=== PATIENT | male | born 1975 | race Caucasian/White ===

== ENCOUNTER 2018-08-25 20:23 | Inpatient (IN) | payer OTHER, SELFPAY ==
[2018-08-25] MEDS ORDERED: Ondansetron HCl/PF 4 MG/2 ML Vial ONE (20:52)
[2018-08-25 21:03] LABS: #Lymphocytes 1.3 thou/uL (1.20-3.40); #Monocytes 0.7 thou/uL (0.11-0.59); #Neutrophils 13.3 thou/uL (1.40-6.50); %Basophils 0.2 % (0.0-1.0); %Eosinophils 0.2 % (0.0-10.0); %Lymphocytes 8.8 % (21.0-51.0); %Monocytes 4.3 % (0.0-10.0); %Neutrophils 86.6 % (42.0-75.0); Mean Corpuscular HGB CONC 33.7 g/dL (32.0-36.0); Mean Corpuscular Hemoglobin 30.6 pg (27.0-31.0); Mean Corpuscular Volume 90.6 fL (78.0-98.0); Mean Platelet Volume 8.2 fL (7.4-10.4); Platelet Count 274 thou/uL (130-400); RBC Distribution Width 11.5 % (11.5-14.5); Red Blood Cell (RBC) Count 5.55 mill/uL (4.70-6.10); White Blood Cell (WBC) Count 15.3 thou/uL (4.8-10.8)
[2018-08-25] MEDS ORDERED: Morphine 4 MG/ML VIAL ONE (21:21)
[2018-08-25 21:29] LABS: CKMB 0.8 ng/mL (0-6.6); Troponin I Less than 0.010 ng/mL (< 0.028)
[2018-08-25 21:34] LABS: ALT (SGPT) 9 U/L (8-55); AST (SGOT) 15 U/L (5-34); Albumin 4.5 g/dL (3.5-5.0); Alkaline Phosphatase 45 U/L (40-150); Anion Gap 17 mmol/L (10-20); BUN (Urea Nitrogen) 18 mg/dL (8.9-20.6); Bilirubin, Total 0.7 mg/dL (0.2-1.2); CK (CPK) 102 U/L (30-200); Calc. Creatinine Clearance 0 mL/min (70-130); Calcium 9.4 mg/dL (7.8-10.44); Carbon Dioxide 21 mmol/L (22-29); Chloride 105 mmol/L (98-107); Estimated GFR-MDRD 62; Globulin 2.7 g/dL (2.4-3.5); Glucose 142 mg/dL (70-105); Potassium 4.8 mmol/L (3.5-5.1); Protein, Total 7.2 g/dL (6.0-8.3); Sodium 138 mmol/L (136-145)
[2018-08-25 21:39] LABS: Lipase 5693 U/L (8-78)
--- NOTE | 2018-08-25 22:25 | ULT ---
RIGHT UPPER QUADRANT ULTRASOUND 08/25/18 COMPARISON: None. HISTORY: Pain. TECHNIQUE: Multiplanar arrieta scale sonographic imaging of the right upper quadrant provided. FINDINGS: imaged pancreas is unremarkable. Distal body and tail are obscured by bowel gas. No focal liver lesio n or intrahepatic biliary dilatation is noted. The gallbladder wall is normal in thickness. The common bile duct measures 5 mm, within normal limits . No gallstones are noted. There is small volume free fluid in the right upper quadrant adjacent to t he right kidney. Right kidney measures 10 cm in craniocaudal dimension and demonstrates no stone, hyd ronephrosis or mass. IMPRESSION: Small volume right upper quadrant free fluid. No cholelithiasis noted. POS: SHON
--- NOTE | 2018-08-25 23:00 | PDOC.FPRHP ---
- History of Present Illness Chief Complaint: abdominal pain History of Present Illness: This is a 42 yo M here for a CC of abdominal pain. He has a PMH significant for pancreatitis in Jun 2017 with a lipase of 3000. The patient endorses epigastric pain that began around 1400. The patient states the pain is located to the epigastrium and does not radiate. HE rates the pain 9/10. The patient endorses nausea, vomiting, diaphoresis and excess gas. Patient states he ate lunch around noon, the felt bloated after. He states the pain is similar to the pain he felt with his previous pancreatitis and think he might be coming back. He takes metamucil at home but has not taken it for the past 2 weeks. - Allergies/Adverse Reactions Allergies Allergy/AdvReac Type Severity Reaction Status Date / Time hydrocodone Allergy Verified 07/04/17 15:48 - Home Medications Medication Instructions Recorded Confirmed Type Multivitamin [Daily Multiple 1 tab PO DAILY 07/05/17 08/26/18 History Vitamin] Psyllium Husk [Metamucil] 660 gm PO DAILY 08/26/18 08/26/18 History - History PMHx: pancreatits (Jun 2017) PSHx: vasectomy FHx: none Social: no alcohol use, current tobacco user, no drug use - Review of Systems General: denies: fever/chills, weight/appetite/sleep changes, night sweats, fatigue Respiratory: denies: cough, congestion, shortness of breath Cardiovascular: denies: chest pain, palpitation, edema Gastrointestinal: reports: nausea, vomiting, abdominal pain. denies: diarrhea, constipation, GI bleeding Genitourinary: denies: incontinence, dysuria, polyuria Skin: denies: rashes, lesions - Vital signs BP: 94/62 HR: 56 RR: 19 Tmax: 97.7 Pox: 97% on RA Wt: 90.72kg - Physical Exam Constitutional: NAD, awake, alert and oriented, well developed HEENT: normocephalic and atraumatic, EOMI, grossly normal vision, grossly normal hearing Chest: no-tender to palpation, no lesions Heart: RRR, normal S1/S2, no murmurs/rubs/gallops Lungs: CTAB, no respiratory distress, good air movement, no wheezing Neurological: no focal deficit Skin: no rash/lesions Psychiatric: normal mood and affect, good judgment and insight, intact recent and remote memory FMR H&P: Results - Labs Result Diagrams: 08/25/18 20:52 08/25/18 20:52 Lab results: WBC 15.3 thou/uL (4.8-10.8) H 08/25/18 20:52 Hgb 17.0 g/dL (14.0-18.0) 08/25/18 20:52 Hct 50.3 % (42.0-52.0) 08/25/18 20:52 MCV 90.6 fL (78.0-98.0) 08/25/18 20:52 Plt Count 274 thou/uL (130-400) 08/25/18 20:52 Neutrophils % 86.6 % (42.0-75.0) H 08/25/18 20:52 Sodium 138 mmol/L (136-145) 08/25/18 20:52 Potassium 4.8 mmol/L (3.5-5.1) 08/25/18 20:52 Chloride 105 mmol/L (98-107) 08/25/18 20:52 Carbon Dioxide 21 mmol/L (22-29) L 08/25/18 20:52 BUN 18 mg/dL (8.9-20.6) 08/25/18 20:52 Creatinine 1.27 mg/dL (0.6-1.3) 08/25/18 20:52 Glucose 142 mg/dL (70-105) H 08/25/18 20:52 Calcium 9.4 mg/dL (7.8-10.44) 08/25/18 20:52 Total Bilirubin 0.7 mg/dL (0.2-1.2) 08/25/18 20:52 AST 15 U/L (5-34) 08/25/18 20:52 ALT 9 U/L (8-55) 08/25/18 20:52 Alkaline Phosphatase 45 U/L (40-150) 08/25/18 20:52 Creatine Kinase 102 U/L (30-200) 08/25/18 20:52 CK-MB (CK-2) 0.8 ng/mL (0-6.6) 08/25/18 20:52 Serum Total Protein 7.2 g/dL (6.0-8.3) 08/25/18 20:52 Albumin 4.5 g/dL (3.5-5.0) 08/25/18 20:52 Lipase 5693 U/L (8-78) H 08/25/18 20:52 - Radiology Interpretation US - abdomen Status: report reviewed by me (Per Dr. Kendall - fluid around right kidney, no cholethiasis) FMR H&P: A/P - Problem List (1) Acute pancreatitis Current Visit: No Status: Acute Code(s): K85.90 - ACUTE PANCREATITIS WITHOUT NECROSIS OR INFECTION, UNSP (2) Leukocytosis Current Visit: Yes Status: Acute Code(s): D72.829 - ELEVATED WHITE BLOOD CELL COUNT, UNSPECIFIED - Plan This is a 42 yo M presenting with abdominal pain Pancreatitis - Lipase 5693, will trend - Will give LR @ 130mls/hr; will make patient NPO - will advance tomorrow - morphine for pain - Will monitor fluid status and electrolytes with AM CBC and CMP - Ca, Mg ordered - Will get LDH - lipid panel last month wnl Leukocytosis - likely 2/2 to stress reaction from pancreatitis - see #1 for plan Hypotension - Will give LR - Will continue to monitor BPs Case discussed with Dr. Childress Disposition/LOS: Will admit for inpatient medical floor FMR H&P: Upper Level - Pertinent history 42 yo male here for abdominal pain. Reports it started this afternoon at 14:00, epigastric, cramping, 9/10 pain scale. Assoc pain with deep breath, N/V, VM this morning. Does not take any medications at home. Denies CP. He reports pain right now is 2/10. Reports he had a similar episode last year which was diagnosed as pancreatitis with no obvious source. In ER, patient received 8mg morphine, 8zofran, 1L NS. - Pertinent findings 124/76 HR: 60 RR: 20 SO2: 99% on RA GEN: NAD, AOx3 CARD: RRR, no m/g/r PULM: CTAB ABD: hypoactive bowel sounds, mildly TTP diffusely, no peritoneal signs EXT: no cyanosis or edema Lipase: 5693 WBC: 15.3 Glucose: 142 RUQ US: small volume right upper quadrant free fluid, no cholelithiasis noted - Plan Date/Time: 08/25/18 6231 Tay Gómez DO, have evaluated this patient and agree with findings/plan as outlined by healthcare administration internship resident. Pertinent changes/additions are listed here. -pancreatitis unknown etiology keep npo with ice chips, advance diet tomorrow morning morphine for pain zofran for nausea check LDH, calcium, mag LR at 130ml/hr
[2018-08-26] MEDS ORDERED: Morphine 4 MG/ML VIAL SLOW IVP PRN (00:31)
[2018-08-26] MEDS ORDERED: Ondansetron ODT 4 MG TAB PO PRN (00:31)
[2018-08-26] MEDS ORDERED: Acetaminophen 650 MG Suppository PR PRN (00:31)
[2018-08-26] MEDS: Morphine 4 MG/ML VIAL SLOW IVP PRN ×5 (00:57→18:51)
[2018-08-26] MEDS: Ondansetron HCl/PF 4 MG/2 ML Vial IVP PRN ×2 (00:57→06:12)
[2018-08-26] MEDS: Lactated Ringer's 1,000 ML IV SCH ×5 (01:04→20:21)
[2018-08-26 01:08] VITALS: BMI 27.4
[2018-08-26 05:05] LABS: #Monocytes 0.6 thou/uL (0.11-0.59); %Eosinophils 0.1 % (0.0-10.0); %Lymphocytes 7.4 % (21.0-51.0); %Monocytes 4.3 % (0.0-10.0); %Neutrophils 88.1 % (42.0-75.0); Hemoglobin 15.4 g/dL (14.0-18.0); Mean Corpuscular HGB CONC 32.4 g/dL (32.0-36.0); Mean Corpuscular Hemoglobin 29.8 pg (27.0-31.0); Mean Platelet Volume 8.2 fL (7.4-10.4); Platelet Count 219 thou/uL (130-400); RBC Distribution Width 11.4 % (11.5-14.5); Red Blood Cell (RBC) Count 5.16 mill/uL (4.70-6.10); White Blood Cell (WBC) Count 13.6 thou/uL (4.8-10.8)
[2018-08-26 05:16] LABS: Calcium 8.7 mg/dL (7.8-10.44); Magnesium 2.1 mg/dL (1.6-2.6)
[2018-08-26 05:20] LABS: ALT (SGPT) 9 U/L (8-55); AST (SGOT) 10 U/L (5-34); Albumin 3.8 g/dL (3.5-5.0); Alkaline Phosphatase 41 U/L (40-150); Anion Gap 11 mmol/L (10-20); BUN (Urea Nitrogen) 18 mg/dL (8.9-20.6); Bilirubin, Total 0.9 mg/dL (0.2-1.2); Calc. Creatinine Clearance 110 mL/min (70-130); Calcium 8.7 mg/dL (7.8-10.44); Carbon Dioxide 28 mmol/L (22-29); Chloride 103 mmol/L (98-107); Estimated GFR-MDRD 68; Globulin 2.4 g/dL (2.4-3.5); Glucose 136 mg/dL (70-105); Protein, Total 6.2 g/dL (6.0-8.3); Sodium 137 mmol/L (136-145)
[2018-08-26 05:33] LABS: Lipase 1765 U/L (8-78)
--- NOTE | 2018-08-26 06:00 | PDOC.FM ---
- Subjective Subjective: NAEO. Patient states his pain is 2/10 this AM. Endorses an episode of vomiting earlier this AM. States his nausea is worsened upon standing. - Objective MAR Reviewed: Yes Vital Signs & Weight: Vital Signs (12 hours) Temp Pulse Resp BP BP Pulse Ox 08/26/18 05:03 98 F 58 L 16 124/71 95 08/26/18 01:18 96 08/25/18 20:27 98.0 F 61 20 123/76 96 Weight Weight 96.933 kg Result Diagrams: 08/26/18 04:40 08/26/18 04:40 Phys Exam - Physical Examination Constitutional: NAD HEENT: moist MMs, sclera anicteric Neck: supple, full ROM Respiratory: clear to auscultation bilateral Cardiovascular: RRR, no significant murmur Gastrointestinal: soft, positive bowel sounds Diffusely tender even to light palpation. Musculoskeletal: no edema Neurological: non-focal, moves all 4 limbs Psychiatric: normal affect, A&O x 3 Skin: no rash, normal turgor, cap refill <2 seconds Dx/Plan (1) Leukocytosis Code(s): D72.829 - ELEVATED WHITE BLOOD CELL COUNT, UNSPECIFIED Status: Acute (2) Acute pancreatitis Code(s): K85.90 - ACUTE PANCREATITIS WITHOUT NECROSIS OR INFECTION, UNSP Status: Acute - Plan Plan: This is a 42YOM w/ a PMH significant for 1 previous episode of pancreatitis in 2017 who presented with 1 day of abdominal pain w/ associated N/V and was found to have pancreatitis. Pancreatitis - Lipase downtrended to 1,765 from 5,693 on admission. Will continue to trend. - Will increase IVFs to LR @ 200mls/hr while attempting to advance diet as tolerated today. Will start with clear liquids once pain is better controlled. - Will continue IV morphine for pain & IV zofran for N/V while patient is not tolerating PO. - Will continue to monitor volume status and electrolytes with AM BMPs. - Ca & Mg WNLs this AM. - LDH low at 83 & LFTs WNLs. - Lipid panel last month WNLs but will repeat to evaluate for hypertriglyceridemia. - Will get a CT w/ & W/o contrast to evaluate for any intra-abdominal pathology that could explain his pancreatitis that could have been missed on U/S. - Will also screen for HIV, syphillis and Hep C to evaluate for infectious etiology which could explain his pancreatitis. Leukocytosis - Likely 2/2 to stress reaction from pancreatitis. Downtrended to 13.6 from 15 on admission. - Will continue to follow w/ QD CBCs. Hypotension - Resolved, BPs WNLs overnight. - Will continue to monitor. Disposition/LOS: Will be clear for discharge home once tolerating PO. Will likely need to monitor for an additional day or 2.
[2018-08-26 10:44] LABS: Cardiac Risk 2.6 (Less than 4.5)
[2018-08-26 11:02] LABS: HIV (1/2) Antibody/Antigen Non-Reactive (NonReactive); HIV 1/2 INDEX 0.15 S/CO (<1.00); Hep C IgG Ab Non-Reactive (NonReactive); Hep C Index 0.04 S/CO (0-0.79); Syphilis Antibody Nonreactive (Nonreactive); Syphilis Antibody Index 0.17 S/CO (<1.00 Non-Reactive)
--- NOTE | 2018-08-26 11:03 | CT ---
CT ABDOMEN WITH AND WITHOUT CONTRAST: HISTORY: Dissection. Elevated lipase levels. Nausea and vomiting. COMPARISON: CT aortic dissection protocol 07/04/2017. FINDINGS: On the noncontrast exam, there is moderate atelectatic change in the lung bases. No pericardial effu morales. There is moderate edema within the anterior perirenal space. No areas of nonenhancement of the pancr eas. There is edema on the pancreatic head and body. The portal vein is patent. No pancreatic mass. No aortic dissection. Mild narrowing of the ostia of the celiac trunk with post-stenotic dilatation likely from the arcuate ligament. There is reactive inflammation and thickening of the 2nd and 3rd portions of the duodenum. There als o is a likely reactive narrowing of a loop of the transverse colon. Renal enhancement is symmetric. The liver, spleen, and gallbladder are unremarkable. Appendix is visualized and is normal. IMPRESSION: 1. Acute edematous pancreatitis without evidence of necrosis. 2. No pancreatic mass. 3. Multiple small hypodensities of both kidneys too small to characterize but are likely cysts. 4. Left posterior medullary renal angiomyolipoma. 5. Reactive thickening of the 2nd and 3rd portions of the duodenum as well as the transverse colon f rom the inflammation of the pancreas with moderate fluid in the anterior perirenal space extending to the retroperitoneum and paracolic gutters bilaterally. POS: SHON
[2018-08-26] MEDS ORDERED: ISOVUE-370 76%-LOCM 1 ML ONE (13:32)
[2018-08-26] MEDS: Enoxaparin Sodium 40 MG/0.4 ML SYRINGE SC SCH (20:22)
[2018-08-27] MEDS: Lactated Ringer's 1,000 ML IV SCH ×5 (01:46→19:54)
[2018-08-27] MEDS: Morphine 4 MG/ML VIAL SLOW IVP PRN ×3 (01:52→21:18)
--- NOTE | 2018-08-27 06:46 | PDOC.FM ---
- Subjective Subjective: NAEO. Patient states he did get up to use the bathroom yesterday but feels nauseous upon standing. Denies any recurrent vomiting since yesterday morning. Says pain is much better. Feels like he needs to eat to have more energy. Is open to advancing diet today. No SOB, chest pain, diarrhea. - Objective Vital Signs & Weight: Vital Signs (12 hours) Temp Pulse Resp BP BP Pulse Ox 08/27/18 04:00 98.2 F 72 16 98/53 L 91 L 08/27/18 00:44 98.2 F 74 20 126/73 91 L 08/26/18 20:00 98.4 F 77 18 131/65 95 08/26/18 19:44 95 Weight Weight 96.933 kg I&O: 08/25/18 08/26/18 08/27/18 06:59 06:59 06:59 Intake Total 2600 Output Total 1050 Balance 1550 Result Diagrams: 08/27/18 06:57 08/27/18 06:57 Phys Exam - Physical Examination Constitutional: NAD HEENT: sclera anicteric Neck: supple, full ROM Respiratory: no wheezing, no rales, no rhonchi, clear to auscultation bilateral Cardiovascular: RRR, no significant murmur Gastrointestinal: soft, non-tender, no distention, positive bowel sounds Musculoskeletal: no edema Neurological: non-focal, moves all 4 limbs Psychiatric: normal affect, A&O x 3 Skin: no rash, normal turgor Dx/Plan (1) Leukocytosis Code(s): D72.829 - ELEVATED WHITE BLOOD CELL COUNT, UNSPECIFIED Status: Acute (2) Acute pancreatitis Code(s): K85.90 - ACUTE PANCREATITIS WITHOUT NECROSIS OR INFECTION, UNSP Status: Acute - Plan Plan: This is a 42YOM w/ a PMH significant for 1 previous episode of pancreatitis in 2017 who presented with 1 day of abdominal pain w/ associated N/V and was found to have pancreatitis. Pancreatitis - Lipase downtrended to 1,765 from 5,693 on admission. - Will consider de-escalating IVFs while attempting to advance diet as tolerated today as pain improves. - Will continue IV morphine for pain & IV zofran for N/V while patient is not tolerating PO. - Will continue to monitor volume status and electrolytes with AM BMPs. - Still unknown origin of pancreatits. Repeat FLP yesterday was WNLs. HIV, RPR, and Hep C testing were also negative. Abdominal Ct W/ & W/O contrast was also negative for pancreatic mass or any inflammation other than small intestinal reactivity to pancreatitis and actual pancreatitis. Leukocytosis - Likely 2/2 to stress reaction from pancreatitis. Up slightly today at 14.4 compared to 13.6 yesterday morning. - Will continue to follow w/ QD CBCs. Hypotension - BPs down to 98/53 this AM. - Will continue to monitor. Disposition/LOS: Will be clear for discharge home once tolerating PO. Will likely need to monitor for an additional day or 2.
[2018-08-27 07:22] LABS: Anion Gap 9 mmol/L (10-20); BUN (Urea Nitrogen) 12 mg/dL (8.9-20.6); Calc. Creatinine Clearance 139 mL/min (70-130); Calcium 8.6 mg/dL (7.8-10.44); Carbon Dioxide 30 mmol/L (22-29); Chloride 101 mmol/L (98-107); Estimated GFR-MDRD 88; Glucose 107 mg/dL (70-105); Magnesium 1.9 mg/dL (1.6-2.6); Phosphorus 2.4 mg/dL (2.3-4.7); Sodium 136 mmol/L (136-145)
[2018-08-27 07:23] LABS: #Lymphocytes 1.2 thou/uL (1.20-3.40); #Monocytes 0.8 thou/uL (0.11-0.59); #Neutrophils 12.4 thou/uL (1.40-6.50); %Basophils 0.2 % (0.0-1.0); %Eosinophils 0.2 % (0.0-10.0); %Lymphocytes 8.1 % (21.0-51.0); %Monocytes 5.5 % (0.0-10.0); %Neutrophils 86.1 % (42.0-75.0); Hemoglobin 13.9 g/dL (14.0-18.0); Mean Corpuscular HGB CONC 33.3 g/dL (32.0-36.0); Mean Corpuscular Hemoglobin 30.6 pg (27.0-31.0); Mean Corpuscular Volume 91.8 fL (78.0-98.0); Mean Platelet Volume 7.7 fL (7.4-10.4); Platelet Count 185 thou/uL (130-400); RBC Distribution Width 11.4 % (11.5-14.5); Red Blood Cell (RBC) Count 4.54 mill/uL (4.70-6.10); White Blood Cell (WBC) Count 14.4 thou/uL (4.8-10.8)
[2018-08-27] MEDS: Enoxaparin Sodium 40 MG/0.4 ML SYRINGE SC SCH (19:55)
[2018-08-27] MEDS: Simethicone Chewable 80 MG TAB PO PRN (20:03)
[2018-08-28] MEDS: Lactated Ringer's 1,000 ML IV SCH ×3 (02:39→18:43)
[2018-08-28 05:22] LABS: #Eosinphils 0.1 thou/uL (0.0-0.7); #Lymphocytes 1.4 thou/uL (1.20-3.40); #Monocytes 0.9 thou/uL (0.11-0.59); #Neutrophils 9.7 thou/uL (1.40-6.50); %Basophils 0.1 % (0.0-1.0); %Eosinophils 0.5 % (0.0-10.0); %Lymphocytes 11.3 % (21.0-51.0); %Monocytes 7.2 % (0.0-10.0); Hemoglobin 12.5 g/dL (14.0-18.0); Mean Corpuscular HGB CONC 33.3 g/dL (32.0-36.0); Mean Corpuscular Hemoglobin 30.9 pg (27.0-31.0); Mean Corpuscular Volume 92.6 fL (78.0-98.0); Mean Platelet Volume 8.3 fL (7.4-10.4); Platelet Count 177 thou/uL (130-400); RBC Distribution Width 11.2 % (11.5-14.5); Red Blood Cell (RBC) Count 4.05 mill/uL (4.70-6.10)
[2018-08-28 05:42] LABS: Anion Gap 10 mmol/L (10-20); BUN (Urea Nitrogen) 10 mg/dL (8.9-20.6); Calc. Creatinine Clearance 154 mL/min (70-130); Calcium 8.4 mg/dL (7.8-10.44); Carbon Dioxide 30 mmol/L (22-29); Chloride 100 mmol/L (98-107); Estimated GFR-MDRD Greater than 90; Glucose 101 mg/dL (70-105); Lipase 178 U/L (8-78); Potassium 3.6 mmol/L (3.5-5.1); Sodium 136 mmol/L (136-145)
--- NOTE | 2018-08-28 06:01 | PDOC.FM ---
- Subjective Subjective: Pt reports abdominal pain 2/10 this morning before sitting up, increased pain with movement. Reports constipation normally, has not had BM here since admission. Reports he is not hungry this AM but was yesterday. - Objective Vital Signs & Weight: Vital Signs (12 hours) Temp Pulse Resp BP BP Pulse Ox 08/28/18 04:43 98.7 F 76 14 119/70 90 L 08/28/18 01:20 98.3 F 79 16 110/62 93 L 08/27/18 19:55 92 L 08/27/18 19:53 98.2 F 86 18 129/76 92 L Weight Weight 96.933 kg I&O: 08/26/18 08/27/18 08/28/18 06:59 06:59 06:59 Intake Total 2600 2640 Output Total 1050 Balance 1550 2640 Result Diagrams: 08/28/18 04:10 08/28/18 04:10 <Temi Khan - Last Filed: 08/28/18 09:06> - Objective Vital Signs & Weight: Vital Signs (12 hours) Temp Pulse Resp BP BP Pulse Ox 08/28/18 12:00 98.5 F 74 18 118/74 93 L 08/28/18 08:00 98.7 F 75 18 118/61 95 08/28/18 04:43 98.7 F 76 14 119/70 90 L Weight Weight 96.933 kg I&O: 08/27/18 08/28/18 08/29/18 06:59 06:59 06:59 Intake Total 2600 2640 Output Total 1050 Balance 1550 2640 Result Diagrams: 08/28/18 04:10 08/28/18 04:10 <Malou Melo - Last Filed: 08/28/18 15:42> Phys Exam - Physical Examination Constitutional: NAD HEENT: PERRLA, moist MMs Neck: no nodes, supple Respiratory: no wheezing, clear to auscultation bilateral Cardiovascular: RRR, no significant murmur Gastrointestinal: positive bowel sounds + distension, TTP Musculoskeletal: no edema, pulses present Psychiatric: normal affect, A&O x 3 <Temi Khan - Last Filed: 08/28/18 09:06> Dx/Plan (1) Leukocytosis Code(s): D72.829 - ELEVATED WHITE BLOOD CELL COUNT, UNSPECIFIED Status: Acute (2) Acute pancreatitis Code(s): K85.90 - ACUTE PANCREATITIS WITHOUT NECROSIS OR INFECTION, UNSP Status: Acute (3) Hypotension Status: Acute (4) Constipation Code(s): K59.00 - CONSTIPATION, UNSPECIFIED Status: Acute - Plan Plan: This is a 42YOM w/ a PMH significant for 1 previous episode of pancreatitis in 2017 who presented with 1 day of abdominal pain w/ associated N/V and was found to have pancreatitis. Pancreatitis - Lipase downtrended to 178 from 5,693 on admission. - De-escalate IVFs while attempting to advance diet as tolerated as pain improves. - Will continue IV morphine for pain & IV zofran for N/V while patient is not tolerating PO. - Will continue to monitor volume status and electrolytes with AM BMPs. - Still unknown origin of pancreatitis. Repeat FLP yesterday was WNLs. HIV, RPR , and Hep C testing were also negative. Abdominal Ct W/ & W/O contrast was also negative for pancreatic mass or any inflammation other than small intestinal reactivity to pancreatitis and actual pancreatitis. Constipation -add metamusil and senna today to get his bowels moving Leukocytosis - Likely 2/2 to stress reaction from pancreatitis. Up slightly today at 14.4 compared to 13.6 yesterday morning. - Will continue to follow w/ QD CBCs. Hypotension - BPs 119/70 this AM. - Will continue to monitor. Disposition/LOS: Will be clear for discharge home once tolerating PO. Will likely need to monitor for an additional day or 2. <Temi Khan - Last Filed: 08/28/18 09:06> Attending Addendum - Attending Addendum Date/Time: 08/28/18 8478 I personally evaluated the patient and discussed the management with Dr. Ene Nicole q I agree with the History, Examination, Assessment and Plan documented above with any addition or exceptions noted below- Patient still having some abdominal pain. Tolerating clear liquids without vomiting or worsening of pain. Afebrile VSS. A/P: 1) Acute pancreatitis- continue current meds. Continue clears for now and advance slowly. Encourage ambulation as tolerated. 2) Constipation- no recent BM; (+) flatus; stool softener and senna. <Malou Melo - Last Filed: 08/28/18 15:42>
--- NOTE | 2018-08-28 08:50 | HP ---
ADDENDUM: Please see the note from Dr. Castillo for which I agree. This is a 42-year-old who about a year ago had pancreatitis just idiopathic as he is not a drinker an d ultrasound has not shown stones or blockage, but he came in with a few day history of epigastric pa in that radiates to his back, nausea, bloating, gas feeling consistent with pancreatitis episodes in the past and was found to have a lipase in the 5000 range. Overnight, has been kept n.p.o. fluids. Pain is a little bit better fairly well controlled on the morphine. He has not vomited again. On ex am, everything was normal except for a little bit of epigastric tenderness. No major rebound or guar ding. ASSESSMENT AND PLAN: Pancreatitis. Plan is to continue n.p.o., IV fluids and monitor levels. We wi ll also get a CT to make sure there is no evidence of any kind of obstruction or mass or anything evelina t has come up since last year.
[2018-08-28] MEDS: Simethicone Chewable 80 MG TAB PO PRN (11:13)
[2018-08-28] MEDS ORDERED: Senokot S 8.6-50 MG TAB PO SCH ×5 (11:30→21:00)
[2018-08-28] MEDS: Morphine 4 MG/ML VIAL SLOW IVP PRN (11:31)
--- NOTE | 2018-08-28 15:07 | ADD-PRG ---
ADDENDUM DATE OF SERVICE: 08/27/2018 Please see the note from Dr. Solano, for which I agree. The patient was seen, evaluated, examined, a nd discussed with the residents by bedside. The patient is improving from a pancreatitis standpoint with less overall pain, less symptoms, and wants to try diet and we can certainly start that today. Abdomen has a little bit of epigastric tenderness. No major rebound, no guarding. So, plan will be to decrease IV fluids, slowly advance to clear liquids and as tolerated and continue same pain manage ment. Certainly, if pain starts worsening make him n.p.o. again.
[2018-08-28] MEDS: Enoxaparin Sodium 40 MG/0.4 ML SYRINGE SC SCH (19:33)
[2018-08-28] MEDS ORDERED: Polyethylene Glycol 3350 17 GM Packet PO SCH (20:00)
[2018-08-28] MEDS ORDERED: Famotidine 20 MG TAB PO SCH (20:00)
[2018-08-28] MEDS: Milk Of Magnesia 30 ML UDCUP PO PRN (20:13)
[2018-08-29] MEDS: Lactated Ringer's 1,000 ML IV SCH (01:03)
[2018-08-29] MEDS: Acetaminophen 325 MG TAB PO PRN ×2 (01:08→19:13)
[2018-08-29 04:48] LABS: #Eosinphils 0.1 thou/uL (0.0-0.7); #Lymphocytes 1.5 thou/uL (1.20-3.40); #Monocytes 0.8 thou/uL (0.11-0.59); #Neutrophils 7.3 thou/uL (1.40-6.50); %Basophils 0.2 % (0.0-1.0); %Eosinophils 1.3 % (0.0-10.0); %Lymphocytes 15.1 % (21.0-51.0); %Monocytes 8.2 % (0.0-10.0); %Neutrophils 75.2 % (42.0-75.0); Hemoglobin 12.4 g/dL (14.0-18.0); Mean Corpuscular HGB CONC 33.1 g/dL (32.0-36.0); Mean Corpuscular Hemoglobin 30.6 pg (27.0-31.0); Mean Corpuscular Volume 92.5 fL (78.0-98.0); Mean Platelet Volume 7.9 fL (7.4-10.4); Platelet Count 198 thou/uL (130-400); RBC Distribution Width 10.9 % (11.5-14.5); Red Blood Cell (RBC) Count 4.05 mill/uL (4.70-6.10); White Blood Cell (WBC) Count 9.7 thou/uL (4.8-10.8)
[2018-08-29 05:18] LABS: Anion Gap 10 mmol/L (10-20); BUN (Urea Nitrogen) 8 mg/dL (8.9-20.6); Calc. Creatinine Clearance 162 mL/min (70-130); Calcium 8.4 mg/dL (7.8-10.44); Carbon Dioxide 28 mmol/L (22-29); Chloride 103 mmol/L (98-107); Estimated GFR-MDRD Greater than 90; Glucose 103 mg/dL (70-105); Potassium 3.8 mmol/L (3.5-5.1); Sodium 137 mmol/L (136-145)
--- NOTE | 2018-08-29 06:18 | PDOC.FM ---
- Subjective Subjective: Pt states abdominal pain is improved this morning. Has had flatulence, no stools yet. States he is hungry this AM. States he has had occasional sharp chest pain since admission. - Objective Vital Signs & Weight: Vital Signs (12 hours) Temp Pulse Resp BP Pulse Ox 08/29/18 04:00 98.4 F 69 16 121/73 92 L 08/29/18 00:00 98.7 F 71 16 124/79 92 L 08/28/18 19:44 98 08/28/18 19:39 98.3 F 84 16 136/79 98 Weight Weight 96.933 kg I&O: 08/27/18 08/28/18 08/29/18 06:59 06:59 06:59 Intake Total 2600 2640 3000 Output Total 1050 Balance 1550 2640 3000 Result Diagrams: 08/29/18 03:57 08/29/18 03:57 <Temi Khan - Last Filed: 08/29/18 08:45> - Objective Vital Signs & Weight: Vital Signs (12 hours) Temp Pulse Resp BP Pulse Ox 08/29/18 17:25 99.0 F 67 18 138/82 93 L 08/29/18 11:55 98.2 F 68 18 131/76 93 L Weight Weight 96.933 kg I&O: 08/28/18 08/29/18 08/30/18 06:59 06:59 06:59 Intake Total 2640 3000 Balance 2640 3000 Result Diagrams: 08/29/18 03:57 08/29/18 03:57 <Malou Melo - Last Filed: 08/29/18 20:38> Phys Exam - Physical Examination Constitutional: NAD Neck: no nodes, supple Respiratory: no wheezing, clear to auscultation bilateral Cardiovascular: RRR, no significant murmur Gastrointestinal: soft, positive bowel sounds distended, mod TTP, no rebound tenderness Musculoskeletal: no edema, pulses present Psychiatric: normal affect, A&O x 3 Skin: normal turgor, cap refill <2 seconds <Temi Khan - Last Filed: 08/29/18 08:45> Dx/Plan (1) Leukocytosis Code(s): D72.829 - ELEVATED WHITE BLOOD CELL COUNT, UNSPECIFIED Status: Acute (2) Acute pancreatitis Code(s): K85.90 - ACUTE PANCREATITIS WITHOUT NECROSIS OR INFECTION, UNSP Status: Acute (3) Hypotension Status: Acute (4) Constipation Code(s): K59.00 - CONSTIPATION, UNSPECIFIED Status: Acute - Plan Plan: This is a 42YOM w/ a PMH significant for 1 previous episode of pancreatitis in 2017 who presented with 1 day of abdominal pain w/ associated N/V and was found to have pancreatitis. Pancreatitis - Lipase downtrended to 178 from 5,693 on admission. - Decreasing fluids to 75 ml/hr, will continue to decrease as patient tolerates PO -Decreased his Morphine to 2 mg q 4 IV for pain - BMP wnl this morning - Still unknown origin of pancreatitis. Repeat FLP was WNLs. HIV, RPR, and Hep C testing negative. - Abdominal Ct W/ & W/O contrast was positive for pancreatitis, negative for pancreatic mass or any inflammation other than small intestinal reactivity to pancreatitis Constipation, most likely 2/2 morphine -DAYANA sennadoc -DAYANA daily miralax -PRN milk of mag -No stools yet, will consider enema if patient unable to stool today. Abdomen is distended on exam. -Hopefully will have bowel mvmt after increased PO intake Leukocytosis, resolved - Likely 2/2 to stress reaction from pancreatitis. - Resolved to 9.7 Hypotension, resolved - BP normal this AM - Will continue to monitor. Disposition/LOS: Will be clear for discharge home once tolerating PO. Will likely need to monitor for at least 2 more days. <Teim Khan - Last Filed: 08/29/18 08:45> Attending Addendum - Attending Addendum Date/Time: 08/29/182034 I personally evaluated the patient and discussed the management with Dr. Ene Khan I agree with the History, Examination, Assessment and Plan documented above with any addition or exceptions noted below- Patient feeling better. Abdiminal pain improved. Tolerating full liquid diet. (+) BM. Afebrile VSS. A/P: 1) Acute pancreatitis- improving. Decrease IVF. Advance diet. Possible d/c tomorrow. <Malou Melo - Last Filed: 08/29/18 20:38>
[2018-08-29] MEDS: Senokot S 8.6-50 MG TAB PO SCH ×2 (07:35→20:28)
[2018-08-29] MEDS: Famotidine 20 MG TAB PO SCH ×2 (07:36→20:28)
[2018-08-29] MEDS: Polyethylene Glycol 3350 17 GM Packet PO SCH (07:36)
[2018-08-29] MEDS ORDERED: Lactated Ringer's 1,000 ML IV SCH (08:11)
[2018-08-29] MEDS ORDERED: Metamucil PACK PO SCH (09:00)
[2018-08-29] MEDS: Milk Of Magnesia 30 ML UDCUP PO PRN (16:32)
[2018-08-29] MEDS: Enoxaparin Sodium 40 MG/0.4 ML SYRINGE SC SCH (20:30)
[2018-08-30 06:01] LABS: #Eosinphils 0.3 thou/uL (0.0-0.7); #Lymphocytes 1.5 thou/uL (1.20-3.40); #Monocytes 0.9 thou/uL (0.11-0.59); #Neutrophils 7.5 thou/uL (1.40-6.50); %Basophils 0.4 % (0.0-1.0); %Eosinophils 2.5 % (0.0-10.0); %Lymphocytes 14.9 % (21.0-51.0); %Monocytes 8.5 % (0.0-10.0); %Neutrophils 73.7 % (42.0-75.0); Hemoglobin 13.1 g/dL (14.0-18.0); Mean Corpuscular HGB CONC 31.9 g/dL (32.0-36.0); Mean Corpuscular Hemoglobin 29.6 pg (27.0-31.0); Mean Corpuscular Volume 92.9 fL (78.0-98.0); Mean Platelet Volume 7.8 fL (7.4-10.4); Platelet Count 252 thou/uL (130-400); RBC Distribution Width 11.1 % (11.5-14.5); Red Blood Cell (RBC) Count 4.42 mill/uL (4.70-6.10); White Blood Cell (WBC) Count 10.1 thou/uL (4.8-10.8)
[2018-08-30 06:07] LABS: Anion Gap 11 mmol/L (10-20); BUN (Urea Nitrogen) 11 mg/dL (8.9-20.6); Calc. Creatinine Clearance 144 mL/min (70-130); Carbon Dioxide 28 mmol/L (22-29); Chloride 101 mmol/L (98-107); Estimated GFR-MDRD Greater than 90; Glucose 95 mg/dL (70-105); Potassium 3.9 mmol/L (3.5-5.1); Sodium 136 mmol/L (136-145)
--- NOTE | 2018-08-30 06:22 | PDOC.FM ---
- Subjective Subjective: Pt has ambulated more. Ate 1/2 sandwich for lunch yesterday, had cheerios and jello for dinner. Has drank 2 bottles of water. Pt still having abdominal pain, but has been controlled with tylenol. - Objective Vital Signs & Weight: Vital Signs (12 hours) Temp Pulse Resp BP Pulse Ox 08/30/18 05:00 97.6 F 61 16 121/74 92 L 08/30/18 01:00 98.2 F 62 18 101/59 L 93 L 08/29/18 20:50 98.6 F 80 16 127/75 93 L Weight Weight 96.933 kg I&O: 08/28/18 08/29/18 08/30/18 06:59 06:59 06:59 Intake Total 2640 3000 500 Balance 2640 3000 500 Result Diagrams: 08/30/18 04:38 08/30/18 04:38 <Temi Khan - Last Filed: 08/30/18 09:12> - Objective Vital Signs & Weight: Vital Signs (12 hours) Temp Pulse Resp BP Pulse Ox 08/30/18 07:37 94 L 08/30/18 07:16 97.8 F 73 16 115/72 90 L 08/30/18 05:00 97.6 F 61 16 121/74 92 L 08/30/18 01:00 98.2 F 62 18 101/59 L 93 L Weight Weight 96.933 kg I&O: 08/29/18 08/30/18 08/31/18 06:59 06:59 06:59 Intake Total 3000 500 Balance 3000 500 Result Diagrams: 08/30/18 04:38 08/30/18 04:38 <Malou Melo - Last Filed: 08/30/18 11:17> Phys Exam - Physical Examination Constitutional: NAD HEENT: PERRLA, moist MMs Neck: no nodes, supple Respiratory: no wheezing, clear to auscultation bilateral Cardiovascular: RRR, no significant murmur Gastrointestinal: soft, positive bowel sounds +distention, TTP in mid epigastrum, no guarding or rebound <Temi Khan - Last Filed: 08/30/18 09:12> Dx/Plan (1) Leukocytosis Code(s): D72.829 - ELEVATED WHITE BLOOD CELL COUNT, UNSPECIFIED Status: Acute (2) Acute pancreatitis Code(s): K85.90 - ACUTE PANCREATITIS WITHOUT NECROSIS OR INFECTION, UNSP Status: Acute (3) Hypotension Status: Acute (4) Constipation Code(s): K59.00 - CONSTIPATION, UNSPECIFIED Status: Acute - Plan Plan: This is a 42YOM w/ a PMH of pancreatitis in 2017 who presented with acute pancreatitis. Acute Pancreatitis - Lipase downtrended to 178 from 5,693 on admission. - PO fluids, IV fluids d/c, diet is being advanced - Tylenol for pain control - BMP wnl - Still unknown origin of pancreatitis. Repeat FLP was WNLs. HIV, RPR, and Hep C testing negative. - Abdominal Ct W/ & W/O contrast was positive for pancreatitis, negative for pancreatic mass or any inflammation other than small intestinal reactivity to pancreatitis -Will recommend GI consult outpatient for idiopathic pancreatitis -Pt given information for [facility] to follow up outpatient, pt states he will have insurance in 1 month Constipation, most likely 2/2 morphine -DAYANA sennadoc -DAYANA daily miralax -PRN milk of mag -BMx1 yesterday -Morphine discontinued as pain is well controlled with tylenol Leukocytosis, resolved - Likely 2/2 to stress reaction from pancreatitis. - Resolved Hypotension, resolved - BP normal this AM - Will continue to monitor. Disposition/LOS: Will be clear for discharge home once tolerating PO. Likely today, pending clinical picture changes DVT PPX: lovenox, patient has been refusing <Temi Khan - Last Filed: 08/30/18 09:12> Attending Addendum - Attending Addendum Date/Time: 08/30/18 1116 I personally evaluated the patient and discussed the management with Dr. Ene Khan I agree with the History, Examination, Assessment and Plan documented above with any addition or exceptions noted below- Patient without complaint. Abdominal pain much improved. Tolerating regular diet. Still having some bloating. Afebrile VSS. A/P: 1) Acute pancreatitis- resolving. PLan to d/c home today and f/u with PCP in the next 2 weeks. <Malou Melo - Last Filed: 08/30/18 11:17>
[2018-08-30 07:17] VITALS: BP 115/72; TEMP 97.8
[2018-08-30] MEDS: Famotidine 20 MG TAB PO SCH (08:42)
[2018-08-30] MEDS: Polyethylene Glycol 3350 17 GM Packet PO SCH (08:43)
[2018-08-30] MEDS: Senokot S 8.6-50 MG TAB PO SCH (08:43)
--- NOTE | 2018-08-31 02:24 | DIS-2 ---
DATE OF ADMISSION: 08/26/2018 DATE OF DISCHARGE: 08/30/2018 RESIDENT: Temi Khan MD ADMITTING ATTENDING: Dr. Roe Childress. DISCHARGE ATTENDING: Dr. Melo. CONSULTATIONS: None. PROCEDURES: 1. Abdomen ultrasound on 08/25/2018, Impression: Small volume right upper quadrant free fluid. No cholelithiasis noted. Gallbladder wall is normal in thickness. No gallstones are noted. 2. Abdomen CT on 08/26/2018, impression: Acute edematous pancreatitis without evidence of necrosis. No pancreatic mass, multiple small hypodensities of both kidneys too small to characterize but are likely cyst. Left posterior medullary renal angiomyolipoma. Reactive thickening of the second and third portions of the duodenum as well as the transverse colon from the inflammation of the pancreas with moderate fluid in the anterior perirenal space extending to the retroperitoneum and pericolic gutters bilaterally. PRIMARY DIAGNOSIS: Acute idiopathic pancreatitis. SECONDARY DIAGNOSES: 1. Constipation. 2. Leukocytosis. 3. Hypotension. DISCHARGE MEDICATIONS: 1. Polyethylene glycol 17 grams oral daily. 2. Multivitamin 1 tab oral daily. 3. Metamucil 660 grams oral daily. HISTORY OF PRESENT ILLNESS AND HOSPITAL COURSE: This is a 42-year-old male presented for chief complaint of abdominal pain. He had a past medical history significant for pancreatitis in 06/2017 with lipase of 3000. The patient endorsed epigastric pain that began around 1400. The patient stated the pain was located at the epigastrium and did not radiate. He rated the pain at 9/10. Patient endorsed nausea, vomiting, diaphoresis, and excess gas. Patient stated he ate lunch around noon and then felt bloated after. He said the pain is similar to the pain felt his previous pancreatitis and thinks that might be coming back. He takes Metamucil at home but had not taken it for the past 2 weeks. On admission, his lipase was 5693. He was given IV fluids and pain was controlled with morphine. A repeat FLP was within normal limits. HIV, RPR, and hepatitis C testing was negative. Abdominal CT with and without contrast was positive for pancreatitis, negative for pancreatic mass or any inflammation within the small intestinal reactivity due to pancreatitis. He was slowly transitioned from IV fluid to p.o. fluids and his diet was advanced. Upon discharge, patient's pain was well controlled with Tylenol and he was able to eat and drink. We recommend a GI consult outpatient for idiopathic pancreatitis. Pt denies alcohol use or family hx of pancreatitis, no medications we are aware of that could be causing his pancreatitis. Patient was constipated during his stay. He was given senna, docusate, daily MiraLax, and Milk of Magnesia. He was able to have a bowel movement on this regimen. Leukocytosis, likely secondary to stress reaction from pancreatitis, resolved. Hypotension, resolved with fluids. His blood pressure was normal upon discharge. Patient was given information to follow up at [facility]. Recommend GI consult as outpatient. DISPOSITION: Stable. DISCHARGE INSTRUCTIONS: 1. Location: Home. 2. Diet: Regular. 3. Activity: As tolerated. 4. Follow up with [facility] within 1 week. Recommend outpatient GI referral for idiopathic pancreatitis MTDLeighton
== END 2018-08-30 12:36 | disposition home or self-care (01) | DRG 440 ==
LOC: ERS 20:23 → T4-B 08-26 00:50
PROVIDERS: ADMIT Family Medicine; ATTEND Family Medicine
DX: K85.90 Acute pancreatitis without necrosis or infection, unspecified (principal); D72.829 Elevated white blood cell count, unspecified; I95.9 Hypotension, unspecified; K59.00 Constipation, unspecified; T40.2X5A Adverse effect of other opioids, initial encounter; Z98.52 Vasectomy status; F17.220 Nicotine dependence, chewing tobacco, uncomplicated
CPT/HCPCS: 36415; 74170; 76705; 80048; 80053; 80061; 82310; 82550; 82553; 83615; 83690; 83735; 84100; 84484; 85025; 86780; 86803; 87389; 87521; 93005; 96361; 96374; 96375; A4216; J1650; J2270; J2405

== ENCOUNTER 2018-12-15 05:53 | Day surgery (SDC) | payer OTHER ==
[2018-12-14 10:51] VITALS: BMI 26.9
[2018-12-15] MEDS ORDERED: Fentanyl 250 MCG/5 ML VIAL ONE (06:22)
[2018-12-15] MEDS ORDERED: cefOXitin 2 GM in Sodium Chloride 0.9% 100 ML IVPB SCH (06:45)
[2018-12-15] MEDS ORDERED: Midazolam HCl 2 mg/2 ml Vial ONE (07:02)
[2018-12-15 07:19] LABS: #Basophils 0.1 thou/uL (0.0-0.2); #Eosinphils 0.1 thou/uL (0.0-0.7); #Lymphocytes 1.8 thou/uL (1.20-3.40); #Monocytes 0.3 thou/uL (0.11-0.59); #Neutrophils 2.5 thou/uL (1.40-6.50); %Eosinophils 2.2 % (0.0-10.0); %Lymphocytes 37.3 % (21.0-51.0); %Neutrophils 52.4 % (42.0-75.0); Hemoglobin 15.2 g/dL (14.0-18.0); Mean Corpuscular HGB CONC 33.4 g/dL (32.0-36.0); Mean Corpuscular Hemoglobin 29.6 pg (27.0-31.0); Mean Corpuscular Volume 88.7 fL (78.0-98.0); Mean Platelet Volume 8.1 fL (7.4-10.4); Platelet Count 212 thou/uL (130-400); RBC Distribution Width 11.7 % (11.5-14.5); Red Blood Cell (RBC) Count 5.12 mill/uL (4.70-6.10); White Blood Cell (WBC) Count 4.8 thou/uL (4.8-10.8)
[2018-12-15] MEDS ORDERED: Iothalamate Meglumine 60% 50 ML VIAL FS ONE (07:31)
[2018-12-15] MEDS ORDERED: Bupivacaine HCl 0.25%/Epi 0.0005/PF 10 ML VIAL FS ONE ×2 (07:31)
[2018-12-15 07:38] LABS: ALT (SGPT) 11 U/L (8-55); AST (SGOT) 12 U/L (5-34); Albumin 4.4 g/dL (3.5-5.0); Alkaline Phosphatase 49 U/L (40-150); Anion Gap 10 mmol/L (10-20); BUN (Urea Nitrogen) 20 mg/dL (8.9-20.6); Bilirubin, Direct 0.3 mg/dL (0.1-0.3); Bilirubin, Total 0.7 mg/dL (0.2-1.2); Calc. Creatinine Clearance 109 mL/min (70-130); Calcium 9.1 mg/dL (7.8-10.44); Carbon Dioxide 27 mmol/L (22-29); Chloride 106 mmol/L (98-107); Estimated GFR-MDRD 69; Glucose 94 mg/dL (70-105); Sodium 139 mmol/L (136-145)
--- NOTE | 2018-12-15 09:54 | OP ---
DATE OF PROCEDURE: 12/15/2018 PREOPERATIVE DIAGNOSES: History of pancreatitis, right upper quadrant pain. FINDINGS: He had adhesions to the gallbladder suggesting previous inflammation, very small cystic duct. It was difficult to cannulate, I was able to get a cholangiogram. No filling defects, free flow into the duodenum. DESCRIPTION OF PROCEDURE: After informed consent, the patient was taken to the operating room and given general endotracheal anesthesia, placed in supine position. Abdomen was prepped and draped in usual fashion. Local anesthesia infiltrated subcutaneously and deep, and a subumbilical incision was performed. Subcu divided sharply. The fascia was grasped and two stay sutures of 0 Vicryl placed in each side of midline. Midline incised. Digital palpation revealed no local adhesions. A blunt 10/12 mm trocar inserted. Pneumoperitoneum was created to a pressure of 15 mmHg. A 0-degree laparoscope was inserted under direct vision. Three 5 mm ports were placed subcostally. The gallbladder was grasped and advanced superiorly. There were quite a bit of adhesions to the gallbladder. These were taken down sharply. The peritoneum was opened to dissect out the cystic duct, artery, and critical view. A clip was placed at the base of the gallbladder on the cystic duct. An incision was made in the cystic duct. An Arrow cholangiocatheter was attempted to be inserted. I could not insert it, so I then moved to a Taut catheter with a Charles clamp and was able to get this cannulated and obtained a cholangiogram. Initially, there was an air bubble in the common duct, was able to flush that out and final views showed no filling defects, free flow into the duodenum. No dilatation. The cystic duct was then triply ligated with hemoclips and divided. The artery triply ligated with hemoclips and divided. The gallbladder removed from its fossa utilizing electrocautery, removed from the abdomen through the umbilical port. Hemostasis assured. Trocars and retractors removed. The fascia was closed with interrupted 2-0 Vicryl suture. The skin closed with interrupted 4-0 Rapide. Dermabond applied. The patient tolerated the procedure well, transferred to Recovery in good condition. Sponge and needle count verified correct x2. Job ID: [id number]
--- NOTE | 2018-12-15 10:06 | RAD ---
INTRAOPERATIVE CHOLANGIOGRAM: DATE: 12/15/2018. HISTORY: Cholecystectomy. FINDINGS: One image from an intraoperative cholangiogram is provided. The opacified common bile duct demonstra christi no filling defect. There is contrast media within the duodenum. IMPRESSION: Single image from intraoperative cholangiogram demonstrates no filling defect within the common bile duct. POS: SHON
[2018-12-15] MEDS ORDERED: Morphine 2 MG/ML SYRINGE ONE (10:09)
[2018-12-15] MEDS ORDERED: traMADol HCl 50 MG TAB ONE (10:47)
[2018-12-15] MEDS ORDERED: Lidocaine 1% PF 5 ML VIAL ONE (11:57)
[2018-12-15] MEDS ORDERED: Ondansetron PF 4 MG/2 ML Vial ONE (11:57)
[2018-12-15] MEDS ORDERED: Glycopyrrolate 0.2 MG/ML 5 ML SYRINGE ONE (11:57)
[2018-12-15] MEDS ORDERED: PROPOFOL 200 MG/20 ML VIAL ONE (11:57)
[2018-12-15] MEDS ORDERED: Rocuronium Bromide 10 MG/ML (10ML VIAL) ONE (11:57)
== END 2018-12-15 11:30 | disposition home or self-care (01) ==
LOC: SDC 05:53
PROVIDERS: ATTEND Surgery
PROC: BF101ZZ Fluoroscopy of Bile Ducts using Low Osmolar Contrast (ICD-10-PCS; principal; 2018-12-15)
PROC: 0FT44ZZ Resection of Gallbladder, Percutaneous Endoscopic Approach (ICD-10-PCS; principal; 2018-12-15)
DX: K81.1 Chronic cholecystitis (principal); Z88.5 Allergy status to narcotic agent; Z79.899 Other long term (current) drug therapy
CPT/HCPCS: 47532; 80048; 80076; 85025; 88304; J0694; J2001; J2250; J2270; J2405; J2704; J3010; J7050; Q9961

== ENCOUNTER 2019-11-01 10:44 | Day surgery (SDC) | payer OTHER ==
[2019-10-31 11:25] VITALS: BMI 27.3
[2019-11-01] MEDS ORDERED: EPINEPHrine 1 MG/ML AMP ONE (14:06)
[2019-11-01] MEDS ORDERED: Bacitracin Zinc Ointment 30 gm TUBE ONE (14:06)
[2019-11-01] MEDS ORDERED: Lidocaine 1% w/Epinephrine 1:100K 20 ML VIAL ONE (14:06)
[2019-11-01] MEDS ORDERED: Fentanyl 100 MCG/2 ML VIAL ONE ×2 (14:10→14:42)
--- NOTE | 2019-11-02 10:09 | OP ---
DATE OF PROCEDURE: 11/01/2019 PREOPERATIVE DIAGNOSES: 1. Deviated septum. 2. Hypertrophic inferior turbinates. POSTOPERATIVE DIAGNOSES: 1. Deviated septum. 2. Hypertrophic inferior turbinates. PROCEDURES PERFORMED: 1. Septoplasty. 2. Bilateral nasal endoscopy with submucosal resection of inferior turbinates. DESCRIPTION OF PROCEDURE: SEPTOPLASTY: After local anesthesia was infiltrated into the submucoperichondrial plane, a standard Felicity incision was made with a #15 blade down to the level of the septal cartilage. The caudal elevator was used to elevate the mucoperichondrium from the underlying cartilage. We then proceeded beyond the bony cartilaginous junction and elevated the bony periosteum as well. Great attention was paid to the spur to prevent rent formation in the septal flap. A transcartilaginous incision was then made, while preserving an adequate dorsal and caudal cartilaginous strut for tip support. The deformed cartilage was removed and disarticulated from the bony cartilaginous junction and maxillary crest. This was placed in saline and would later be crushed and returned to the mucoperichondrial envelope. We then elevated the contralateral periosteum from the bony cartilaginous region and removed the deformed portions of the bone and bony spurs. The cartilage was then crushed and placed back into the mucoperichondrial envelope and the mucosa was re-approximated with a quilting stitch composed of rapidly absorbent gut suture. The Felicity incision was also closed with interrupted gut suture. At the completion of the case, Alan splints were placed and suture secured to the caudal septum. BILATERAL NASAL ENDOSCOPY WITH SUBMUCOSAL RESECTION OF INFERIOR TURBINATES: After consent was obtained, the patient was identified, brought to the operating room, and placed on the operating room table in the supine position. Consent was obtained, notifying the patient of the possibility of additional infections, bleeding, brain injury, and eye/orbital injury. The patient was placed on the operating room table, and general endotracheal anesthesia and intravenous access was obtained. The patient was then positioned, prepped and draped for endoscopic sinus surgery. Nasal preparation included trimming nasal vestibular hairs and spraying in topical Afrin. We then placed Afrin topical solution on nasal pledgets and strategically located them intranasally. The perinasal mucosa was injected with 1% lidocaine with 1:100,000 epinephrine in the submucoperichondrial plane of the septum, lateral nasal wall, and anterior to the uncinate. The patient was then prepped and draped in a sterile fashion and positioned for endoscopic sinus surgery. With the 0-degree endoscope, the patient underwent systematic nasal endoscopy. There were no suspicious internasal masses or lesions identified. We then focused our attention to the osteomeatal complex region under the middle turbinate. The inferior turbinates were visualized with a 0 degree endoscope and outfractured with a Salem elevator. The inferior medial aspect was cauterized with the electrocautery. Hemostasis was obtained . After adequate airway was established, we turned our attention to the contralateral side and used a similar procedure. Again, a Salem elevator was used to outfracture inferior turbinates under endoscopic visualization. With a suction cautery, the free inferior medial aspect was cauterized under direct visualization along the length of the inferior turbinate. At this point, we then turned our attention to the contralateral side and proceeded with endoscopic sinus surgery. At the completion of the case, Rice keel splints were placed in the ethmoid cavities after the ethmoidectomy. There were no complications. The patient tolerated the procedure well and was discharged to the recovery room in stable condition prior to return to the preoperative day stay with ultimate discharge home. Prescriptions for pain medication and antibiotics were provided. The patient received intramuscular Depo-Medrol during the case. Job ID: [id number]
== END 2019-11-01 18:20 | disposition home or self-care (01) ==
LOC: SDC 10:44
PROVIDERS: ATTEND Specialist
PROC: 09TL8ZZ Resection of Nasal Turbinate, Via Natural or Artificial Opening Endoscopic (ICD-10-PCS; principal; 2019-11-01)
PROC: 09RM07Z Replacement of Nasal Septum with Autologous Tissue Substitute, Open Approach (ICD-10-PCS; principal; 2019-11-01)
DX: J34.2 Deviated nasal septum (principal); J34.3 Hypertrophy of nasal turbinates; K21.9 Gastro-esophageal reflux disease without esophagitis; Z88.5 Allergy status to narcotic agent
CPT/HCPCS: J0171; J3010